=== PATIENT | female | born 1975 | race Caucasian/White ===

== ENCOUNTER 2022-12-04 13:07 | Outpatient (CLI) | payer BC | END 2022-12-04 13:08 | disposition home or self-care (01) | LOC: BICMAMMO 13:07 | PROVIDERS: ATTEND Internal Medicine | DX: Z12.31 Encounter for screening mammogram for malignant neoplasm of breast (principal) | CPT/HCPCS: 77063; 77067 ==

== ENCOUNTER 2023-01-04 15:39 | Outpatient (CLI) | payer BC ==
[2023-01-04] MEDS ORDERED: Iopamidol-370 76% 500 ML MDV (1 ML CHARGE) ONE (15:42)
== END 2023-01-04 15:40 | disposition home or self-care (01) ==
LOC: CT 15:39
PROVIDERS: ATTEND Internal Medicine Cardiovascular Disease
DX: I35.1 Nonrheumatic aortic (valve) insufficiency (principal); K86.89 Other specified diseases of pancreas
CPT/HCPCS: 71275; Q9967